=== PATIENT | male | born 1995 | race Two or more races ===

== ENCOUNTER 2017-01-27 20:15 | Emergency (ER) | payer SELFPAY ==
[~2017-01-27] VITALS: Ht 165.1 cm; Wt 52.2 kg
[2017-01-27 20:25] VITALS: BP 106/70
--- NOTE | 2017-01-27 20:45 | RAD ---
PROCEDURE CT head without contrast 2016. HISTORY Syncope. Possible seizure. TECHNIQUE Noncontrast images were performed. Exposure: One or more of the following individualized dose reduction techniques were utilized for this exam: 1. Automated exposure control. 2. Adjustment of the mA and/or kV according to patient size. 3. Use of iterative reconstruction technique. COMPARISON FINDINGS There is no apparent intracranial mass, hemorrhage or abnormal extra-axial fluid collection. No area of abnormal density is seen in the brain. The ventricles and basilar cisterns are normally positioned. The sinuses and mastoid air cells are clear. IMPRESSION No apparent intracranial abnormality. Electronically signed by: Devonte Berumen (Jan 27, 2017 20:43:58)
--- NOTE | 2017-01-27 21:01 | PHYS DOC ---
General Chief Complaint: SYNCOPE Stated Complaint: SEIZURE Time Seen by MD: 20:18 Source: patient, EMS Exam Limitations: no limitations Problems: History of Present Illness Initial Comments Pt is 21/M to ED via EMS for possible seizure. EMS reports called to local [employer] for possible seizure. On arrival pt found by EMS to be awake and confused, unaware of day, location, or name of boss at work. No lateralizing neurodefs. On ED arrival pt AOx3, no BETANCOURT or focal weakness, no new/progressive sx. 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 Pt asymptomatic on arrival. Timing/Duration: 1 hour Severity: severe Modifying Factors: improves with other Associated Symptoms: syncope Allergies: Coded Allergies: No Known Drug Allergies (Unverified , 01/27/17) Past Medical History Medical History: no pertinent history Surgical History: noncontributory Social History Smoker: cigarettes Alcohol: none Drugs: none Review of Systems Constitutional: denies chills, denies fever, malaise Respiratory: denies cough, denies shortness of breath Cardiovascular: denies chest pain, denies palpitations, syncope Gastrointestinal: denies diarrhea, denies nausea, denies vomiting Genitourinary: denies dysuria, denies frequency, denies hematuria Musculoskeletal: see HPIdenies back pain, denies joint swelling, denies neck pain Psychiatric/Neurological: see HPIdenies headache Physical Exam General Appearance: WD/WN, no apparent distress, thin Eyes: bilateral eye EOMI, bilateral eye PERRL, bilateral eye normal inspection Ear, Nose, Throat: hearing grossly normal, normal ENT inspection, normal pharynx Neck: non-tender, supple Respiratory: normal breath sounds, no respiratory distress Cardiovascular: normal peripheral pulses, regular rate, rhythm Gastrointestinal: non tender, soft Back: no CVA tenderness, no vertebral tenderness Extremities: non-tender, normal inspection 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 PHYSICIAN: LAURYN MUNIZ DO REASON: syncope/seizure PROCEDURE: CT HEAD WO CONTRAST PROCEDURE CT head without contrast 2016. HISTORY Syncope. Possible seizure. TECHNIQUE Noncontrast images were performed. Exposure: One or more of the following individualized dose reduction techniques were utilized for this exam: 1. Automated exposure control. 2. Adjustment of the mA and/or kV according to patient size. 3. Use of iterative reconstruction technique. COMPARISON FINDINGS There is no apparent intracranial mass, hemorrhage or abnormal extra-axial fluid collection. No area of abnormal density is seen in the brain. The ventricles and basilar cisterns are normally positioned. The sinuses and mastoid air cells are clear. IMPRESSION No apparent intracranial abnormality. Electronically signed by: Jaspal Berumen (Jan 27, 2017 20:43:58) DICTATED AND SIGNED BY: JASPAL BERUMEN Jr, MD DATE: 01/27/172043 CC: LAURYN MUNIZ DO ~ Chest AP: hyperinflation no acute process noted Overall reassuring workup, lactic acid 5.1 (supports seizure) UDS +cannabinoids +benzodiazepines (pt doesn't wish UDS to be discussed in front of mom). I discussed tx plan and close neurology follow up, pt with supportive family will return prn. Departure Time of Disposition: 22:13 Disposition: 01 HOME, SELF-CARE Diagnosis: New onset seizure Condition: IMPROVED Patient Instructions: Seizure, Adult, [id number] Additional Instructions: Off work until cleared by neurology. No driving or operating machinery until cleared by neurology. Aggressive hydration with gatorade, water. Rest, no strenuous activity. You need to follow up with a Neurologist: Afua Pickering MD [address] [place], [place] [phone] call tomorrow morning to schedule next available appointment. Return to ED with new or changing symptoms. LAURYN MUNIZ DO Jan 27, 2017 21:01
[2017-01-27] MEDS ORDERED: IV NORMAL SALINE 1,000ML 1,000 ML IV SCH (21:15)
[2017-01-27 21:24] LABS: BASO # 0.1 x10^3/uL (0.0-0.2); BASO % 1 % (0-3); EOS # 0.2 x10^3/uL (0.0-0.7); EOS % 2 % (0-3); HEMATOCRIT 42.8 % (39.0-53.0); HEMOGLOBIN 14.3 g/dL (13.0-17.5); LYMPH # 2.5 x10^3/uL (1.0-4.8); LYMPH % 29 % (24-48); MEAN CORPUSCULAR HEMOGLOBIN 30 pg (25-35); MEAN CORPUSCULAR HGB CONC 33 g/dL (31-37); MEAN CORPUSCULAR VOLUME 90 fL (79-100); MONO # 0.6 x10^3/uL (0.0-1.1); MONO % 7 % (0-9); NEUT # 5.2 x10^3uL (1.8-7.7); NEUT % 61 % (31-73); PLATELET COUNT 230 x10^3/uL (140-400); RED BLOOD COUNT 4.75 x10^6/uL (4.30-5.70); RED CELL DISTRIBUTION WIDTH 12.7 % (11.5-14.5); WHITE BLOOD COUNT 8.6 x10^3/uL (4.0-11.0)
[2017-01-27 21:29] LABS: CALCIUM 9.5 mg/dL (8.5-10.1); CREATININE 1.1 mg/dL (0.7-1.3); GFR 86.2; POTASSIUM 4.1 mmol/L (3.5-5.1)
[2017-01-27 22:01] LABS: AMPHETAMINE/METHAMPHETAMINE NEG (NEG); BARBITURATES NEG (NEG); BENZODIAZEPINES POS (NEG); CANNABINOIDS POS (NEG); COCAINE NEG (NEG); METHADONE NEG (NEG); OPIATES NEG (NEG); PHENCYCLIDINE NEG (NEG)
[2017-01-27 22:09] LABS: BILIRUBIN,URINE NEG (NEG); CLARITY,URINE CLEAR; COLOR,URINE YELLOW; GLUCOSE,URINE NEG (NEG); NITRITE,URINE NEG (NEG); UROBILINOGEN,URINE 0.2 mg/dL (0.2 mg/dL)
[2017-01-27 22:10] LABS: BACTERIA,URINE 0 /HPF (0-FEW)
[2017-01-27 22:11] LABS: SQUAMOUS EPITHELIAL CELL,UR OCC /LPF
--- NOTE | 2017-01-28 09:24 | RAD ---
AP portable chest radiograph 01/27/2017 Clinical History: Syncope. An AP portable erect digital radiograph of the chest was obtained. No previous studies are available for comparison. The cardiac and mediastinal silhouettes are within normal limits in size and configuration. No acute pulmonary infiltrate is seen. No pleural effusion or pneumothorax is noted. The osseous structures are grossly intact. Impression: No radiographic evidence of active cardiopulmonary disease.
== END 2017-01-27 22:44 | disposition home or self-care (01) ==
LOC: ER 20:15
DX: R56.9 Unspecified convulsions (principal); R55 Syncope and collapse; F17.210 Nicotine dependence, cigarettes, uncomplicated
CPT/HCPCS: 36415; 70450; 71010; 80048; 80305; 80320; 81001; 82550; 83605; 85027; 96360; G0480; G0481; 99285-25; J7030

== ENCOUNTER 2017-12-05 05:16 | Emergency (ER) | payer BC ==
[~2017-12-05] VITALS: Ht 165.1 cm; Wt 46.8 kg
[2017-12-05] MEDS ORDERED: ONDANSETRON PF 4 MG/2 ML VIAL. ONE (05:34)
[2017-12-05] MEDS ORDERED: IV NORMAL SALINE 1,000ML 1,000 ML IV SCH (05:35)
[2017-12-05] MEDS ORDERED: KETOROLAC 30 MG/ML VIAL. IV ONE (05:45)
[2017-12-05] MEDS ORDERED: 0.9 % SODIUM CHLORIDE 10 ML DISP.SYRIN. IV PRN (05:45)
[2017-12-05] MEDS ORDERED: ONDANSETRON PF 4 MG/2 ML VIAL. IV ONE (05:45)
--- NOTE | 2017-12-05 05:50 | PHYS DOC ---
Past History Past Medical History: No Pertinent History Past Surgical History: No Surgical History Alcohol Use: Occasionally Drug Use: None Adult General Chief Complaint Chief Complaint: ABDOMINAL PAIN [facility] HPI 22-year-old male patient without medical problems complaining of sudden onset of epigastric pain since 2200 last night as a constant and sharp pain without radiation. Patient rated his pain as a severe pain. Patient complaining of 6 episodes of nonbloody vomiting. Patient states that a bowel movement yesterday and times to small amount of stool. Patient denies fever and chills, urinary symptoms, sick contacts. Patient states he was able to drink plenty of liquids and urinating a lot. Review of Systems Review of Systems Constitutional: Denies fever or chills [] Eyes: Denies change in visual acuity, redness, or eye pain [] HENT: Denies nasal congestion or sore throat [] Respiratory: Denies cough or shortness of breath [] Cardiovascular: No additional information not addressed in HPI [] GI: Reports abdominal pain, nausea, vomiting, denies bloody stools or diarrhea [ ] : Denies dysuria or hematuria [] Musculoskeletal: Denies back pain or joint pain [] Integument: Denies rash or skin lesions [] Neurologic: Denies headache, focal weakness or sensory changes [] Endocrine: Denies polyuria or polydipsia [] All other systems were reviewed and found to be within normal limits, except as documented in this note. Family History Family History Noncontributory Current Medications Current Medications Current Medications Medications (Trade) Dose Ordered Sig/Macario Start Time Stop Time Status Last Admin Dose Admin Ketorolac Tromethamine (Toradol) 30 mg 1X ONCE 12/05/17 05:45 12/05/17 05:46 UNV Ondansetron HCl (Zofran) 4 mg 1X ONCE 12/05/17 05:45 12/05/17 05:46 UNV Sodium Chloride (Normal Saline Flush) 10 ml QSHIFT PRN 12/05/17 05:45 UNV Allergies Allergies Allergies Coded Allergies Type Severity Reaction Last Updated Verified No Known Drug Allergies 01/27/17 No Physical Exam Physical Exam Constitutional: Well developed, well nourished, moderate distress, non-toxic appearance, anxious. [] HENT: Normocephalic, atraumatic, bilateral external ears normal, oropharynx moist, no oral exudates, nose normal. [] Eyes: PERRLA, EOMI, conjunctiva normal, no discharge. [] Neck: Normal range of motion, no tenderness, supple, no stridor. [] Cardiovascular:Heart rate regular rhythm, no murmur [] Lungs & Thorax: Bilateral breath sounds clear to auscultation [] Abdomen: Bowel sounds normal, soft, no tenderness, epigastric guarding, no masses, no pulsatile masses. [] Skin: Warm, dry, no erythema, no rash. [] Back: No tenderness, no CVA tenderness. [] Extremities: No tenderness, no cyanosis, no clubbing, ROM intact, no edema. [] Neurologic: Alert and oriented X 3, normal motor function, normal sensory function, no focal deficits noted. [] Psychologic: Anxious, judgement normal, mood normal. [] Current Patient Data Vital Signs Vital Signs Date Time Temp Pulse Resp B/P (MAP) Pulse Ox O2 Delivery O2 Flow Rate FiO2 12/05/17 08:02 70 18 122/76 (91) 99 Room Air 12/05/17 05:16 98.4 64 26 100 Room Air Lab Results Laboratory Tests Test 12/05/17 05:40 12/05/17 06:56 White Blood Count 14.1 x10^3/uL (4.0-11.0) Red Blood Count 5.32 x10^6/uL (4.30-5.70) Hemoglobin 15.7 g/dL (13.0-17.5) Hematocrit 47.4 % (39.0-53.0) Mean Corpuscular Volume 89 fL (79-100) Mean Corpuscular Hemoglobin 30 pg (25-35) Mean Corpuscular Hemoglobin Concent 33 g/dL (31-37) Red Cell Distribution Width 13.6 % (11.5-14.5) Platelet Count 279 x10^3/uL (140-400) Neutrophils (%) (Auto) 85 % (31-73) Lymphocytes (%) (Auto) 11 % (24-48) Monocytes (%) (Auto) 3 % (0-9) Eosinophils (%) (Auto) 0 % (0-3) Basophils (%) (Auto) 1 % (0-3) Neutrophils # (Auto) 12.0 x10^3uL (1.8-7.7) Lymphocytes # (Auto) 1.5 x10^3/uL (1.0-4.8) Monocytes # (Auto) 0.5 x10^3/uL (0.0-1.1) Eosinophils # (Auto) 0.0 x10^3/uL (0.0-0.7) Basophils # (Auto) 0.1 x10^3/uL (0.0-0.2) Sodium Level 137 mmol/L (136-145) Potassium Level 3.7 mmol/L (3.5-5.1) Chloride Level 99 mmol/L (98-107) Carbon Dioxide Level 23 mmol/L (21-32) Anion Gap 15 (6-14) Blood Urea Nitrogen 18 mg/dL (8-26) Creatinine 1.0 mg/dL (0.7-1.3) Estimated GFR (Cockcroft-Gault) 95.3 BUN/Creatinine Ratio 18 (6-20) Glucose Level 144 mg/dL (70-99) Calcium Level 10.0 mg/dL (8.5-10.1) Total Bilirubin 0.5 mg/dL (0.2-1.0) Aspartate Amino Transf (AST/SGOT) 34 U/L (15-37) Alanine Aminotransferase (ALT/SGPT) 31 U/L (16-63) Alkaline Phosphatase 81 U/L (46-116) Total Protein 8.1 g/dL (6.4-8.2) Albumin 4.5 g/dL (3.4-5.0) Albumin/Globulin Ratio 1.3 (1.0-1.7) Lipase 117 U/L (73-393) Urine Collection Type Unknown Urine Color Angie Urine Clarity Clear Urine pH 6.5 Urine Specific Burt 1.025 Urine Protein 30 mg/dl (NEG-TRACE) Urine Glucose (UA) Neg mg/dL (NEG) Urine Ketones (Stick) 80 mg/dL (NEG) Urine Blood Neg (NEG) Urine Nitrite Neg (NEG) Urine Bilirubin Neg (NEG) Urine Urobilinogen Dipstick 0.2 mg/dL (0.2 mg/dL) Urine Leukocyte Esterase Neg (NEG) Urine RBC Occ /HPF (0-2) Urine WBC Occ /HPF (0-4) Urine Squamous Epithelial Cells Occ /LPF Urine Amorphous Sediment Present /HPF Urine Bacteria 0 /HPF (0-FEW) Urine Mucus Slight /LPF Urine Sperm Present /HPF EKG EKG [] Radiology/Procedures Radiology/Procedures US abd Impressions: No acute disease Course & Med Decision Making Course & Med Decision Making Moderate improvement with GI cocktail. CT scan was declined. Dragon Disclaimer Dragon Disclaimer This electronic medical record was generated, in whole or in part, using a voice recognition dictation system. Departure Departure: Impression: Primary Impression: Epigastric pain Additional Impression: Nausea and vomiting Disposition: HOME, SELF-CARE Condition: STABLE Referrals: PCPTRVEOR (PCP) Patient Instructions: Gastritis, Adult Additional Instructions: Jasper was seen in the emergency department for nausea/vomiting and abdominal pain. No emergency medical condition was found on history or physical exam. He did have normal labs and imaging. He is given prescription for nausea medication. His symptoms are most consistent with gastritis. He is advised follow-up with his primary care doctor as needed for further management. Problem Qualifiers MILIND GONZALEZ MD Dec 05, 2017 05:50 NIKOS VALENCIA MD Dec 05, 2017 08:26
[2017-12-05 05:57] LABS: BASO # 0.1 x10^3/uL (0.0-0.2); BASO % 1 % (0-3); EOS % 0 % (0-3); HEMATOCRIT 47.4 % (39.0-53.0); HEMOGLOBIN 15.7 g/dL (13.0-17.5); LYMPH # 1.5 x10^3/uL (1.0-4.8); LYMPH % 11 % (24-48); MEAN CORPUSCULAR HEMOGLOBIN 30 pg (25-35); MEAN CORPUSCULAR HGB CONC 33 g/dL (31-37); MEAN CORPUSCULAR VOLUME 89 fL (79-100); MONO # 0.5 x10^3/uL (0.0-1.1); MONO % 3 % (0-9); NEUT % 85 % (31-73); PLATELET COUNT 279 x10^3/uL (140-400); RED BLOOD COUNT 5.32 x10^6/uL (4.30-5.70); RED CELL DISTRIBUTION WIDTH 13.6 % (11.5-14.5); WHITE BLOOD COUNT 14.1 x10^3/uL (4.0-11.0)
[2017-12-05 06:08] LABS: ALBUMIN 4.5 g/dL (3.4-5.0); ALBUMIN/GLOBULIN RATIO 1.3 (1.0-1.7); GFR 95.3; POTASSIUM 3.7 mmol/L (3.5-5.1); TOTAL BILIRUBIN 0.5 mg/dL (0.2-1.0); TOTAL PROTEIN 8.1 g/dL (6.4-8.2)
--- NOTE | 2017-12-05 07:10 | RAD ---
INDICATION: abd pain x 10 hrs COMPARISON: None. TECHNIQUE: Grayscale and color ultrasound images obtained through the abdomen. FINDINGS: Aorta/IVC: Visualized portion unremarkable. Pancreas: Visualized portions unremarkable. Liver: Echotexture within normal limits. Gallbladder: No definite stones or wall thickening. Common Bile Duct: Not dilated. Right Kidney: No hydronephrosis. IMPRESSION: No definite gallstones or bile duct dilation. Electronically signed by: Jaiden Larsen MD (12/05/2017 7:07 AM) [facility]
[2017-12-05 07:32] LABS: AMORPHOUS SEDIMENT,UR PRESENT /HPF; BACTERIA,URINE 0 /HPF (0-FEW); BILIRUBIN,URINE NEG (NEG); CLARITY,URINE CLEAR; COLOR,URINE AMBER; GLUCOSE,URINE NEG (NEG); NITRITE,URINE NEG (NEG); RBC,URINE OCC /HPF (0-2); SPERM,URINE PRESENT /HPF; SQUAMOUS EPITHELIAL CELL,UR OCC /LPF; UROBILINOGEN,URINE 0.2 mg/dL (0.2 mg/dL); WBC,URINE OCC /HPF (0-4)
[2017-12-05] MEDS ORDERED: LIDO:MAALOX 1:1 20 ML SINGLE DOSE PO ONE (08:00)
[2017-12-05 08:02] VITALS: BP 122/76
[2017-12-05] MEDS ORDERED: ONDA4TAB10 SL (08:43)
== END 2017-12-05 08:47 | disposition home or self-care (01) ==
LOC: ER 05:16
DX: R10.13 Epigastric pain (principal); R11.2 Nausea with vomiting, unspecified
CPT/HCPCS: 36415; 76705; 80053; 81001; 83690; 85025; 96361; 96374; 96375; 99285; J1885; J2405; J3010; J7030

== ENCOUNTER 2017-12-07 11:27 | Emergency (ER) | payer BC ==
[~2017-12-07 11:27] MED LIST: ONDA4TAB10 SL
[2017-12-07] MEDS ORDERED: IOHEXOL 300 MG/ML 75 ML VIAL. IV ONE (12:45)
--- NOTE | 2017-12-07 13:13 | RAD ---
EXAM: CT abdomen/pelvis with contrast. HISTORY: Right abdominal pain. TECHNIQUE: Computed tomography of the abdomen and pelvis was performed after the intravenous administration of 75 mL Omnipaque 300. COMPARISON: None. FINDINGS: Lung windows through the visualized portions of the bases reveal no abnormality. Bone windows reveal no suspicious lesions. The liver, gallbladder, pancreas, adrenal glands, spleen and kidneys are unremarkable. There are no pathologically enlarged lymph nodes. The appendix is not inflamed. There is no obstruction. Questionable mild wall thickening of the left colon is likely only from luminal decompression. IMPRESSION: 1. No cause for acute pain is identified. Correlate with symptoms to exclude mild left colitis. *One or more of the following individualized dose reduction techniques were utilized for this examination: 1. Automated exposure control. 2. Adjustment of the mA and/or kV according to patient size. 3. Use of iterative reconstruction technique.
[2017-12-07] MEDS ORDERED: LIDO:MAALOX 1:1 20 ML SINGLE DOSE PO ONE (13:15)
[2017-12-07 13:40] VITALS: BP 129/59
--- NOTE | 2017-12-07 13:55 | PHYS DOC ---
Past History Past Medical History: No Pertinent History Past Surgical History: No Surgical History Alcohol Use: Rarely Drug Use: Marijuana Adult General Chief Complaint Chief Complaint: ABDOMINAL PAIN HPI HPI Patient is a 22 year old F who presents with epigastric pain with nausea over the past 3-4 days. He was seen in the emergency department 2 days ago with a negative workup. He feels that his symptoms are worse after eating and improved in between meals. He denies vomiting or diarrhea. He has no other associated symptoms. He has no exacerbating or alleviating factors. Review of Systems Review of Systems Constitutional: Denies fever or chills [] Eyes: Denies change in visual acuity, redness, or eye pain [] HENT: Denies nasal congestion or sore throat [] Respiratory: Denies cough or shortness of breath [] Cardiovascular: No additional information not addressed in HPI [] GI: Denies vomiting, bloody stools or diarrhea [] : Denies dysuria or hematuria [] Musculoskeletal: Denies back pain or joint pain [] Integument: Denies rash or skin lesions [] Neurologic: Denies headache, focal weakness or sensory changes [] Endocrine: Denies polyuria or polydipsia [] All other systems were reviewed and found to be within normal limits, except as documented in this note. Family History Family History No pertinent family medical she was reported Current Medications Current Medications Current Medications Medications (Trade) Dose Ordered Sig/Macario Start Time Stop Time Status Last Admin Dose Admin Iohexol (Omnipaque 300 Mg/ml) 75 ml 1X ONCE 12/07/17 12:45 12/07/17 12:46 DC Multi-Ingredient Mouthwash/Gargle (Gi Cocktail) 20 ml 1X ONCE 12/07/17 13:15 12/07/17 13:16 DC 12/07/17 13:32 20 ML Allergies Allergies Allergies Coded Allergies Type Severity Reaction Last Updated Verified No Known Drug Allergies 01/27/17 No Physical Exam Physical Exam Constitutional: Well developed, well nourished, no acute distress, non-toxic appearance. [] HENT: Normocephalic, atraumatic, bilateral external ears normal, oropharynx moist, no oral exudates, nose normal. [] Eyes: PERRLA, EOMI, conjunctiva normal, no discharge. [] Neck: Normal range of motion, no tenderness, supple, no stridor. [] Cardiovascular:Heart rate regular rhythm, no murmur [] Lungs & Thorax: Bilateral breath sounds clear to auscultation [] Abdomen: Bowel sounds normal, soft, no masses, no pulsatile masses. [] Mild epigastric tenderness, no left sided tenderness Skin: Warm, dry, no erythema, no rash. [] Extremities: No tenderness, no cyanosis, no clubbing, ROM intact, no edema. [] Neurologic: Alert and oriented X 3, normal motor function, normal sensory function, no focal deficits noted. [] Psychologic: Affect normal, judgement normal, mood normal. [] Current Patient Data Vital Signs Vital Signs Date Time Temp Pulse Resp B/P (MAP) Pulse Ox O2 Delivery O2 Flow Rate FiO2 12/07/17 11:45 98.1 53 16 100 Room Air EKG EKG [] Radiology/Procedures Radiology/Procedures CT abdomen and pelvis with contrast Impressions: No acute disease was noted however radiology report did comment on possible left -sided colitis. Correlation with physical exam was not consistent with colitis Course & Med Decision Making Course & Med Decision Making Pertinent Labs and Imaging studies reviewed. (See chart for details) His symptoms did improve moderately with a GI cocktail Dragon Disclaimer Dragon Disclaimer This electronic medical record was generated, in whole or in part, using a voice recognition dictation system. Departure Departure: Impression: Primary Impression: Gastritis Disposition: HOME, SELF-CARE Condition: STABLE Referrals: RACHEL SON APRN (PCP) Patient Instructions: Gastritis, Adult Additional Instructions: Jasper was seen in the emergency department for abdominal pain. No emergency medical condition was found on history or physical exam. He did have a normal CT scan. His symptoms are most consistent with gastritis. Is advised follow-up with his primary care doctor as needed for further management. Problem Qualifiers Primary Impression: Gastritis Gastritis type: unspecified gastritis Chronicity: acute Gastritis bleeding : without bleeding Qualified Codes: K29.00 - Acute gastritis without bleeding NIKOS VALENCIA MD Dec 07, 2017 13:55
== END 2017-12-07 13:59 | disposition home or self-care (01) ==
LOC: ER 11:27
DX: K29.70 Gastritis, unspecified, without bleeding (principal); F12.10 Cannabis abuse, uncomplicated
CPT/HCPCS: 74177; 99284-25

== ENCOUNTER 2020-06-27 15:28 | Emergency (ER) | payer BC, OTHER ==
[~2020-06-27] VITALS: Ht 165.1 cm; Wt 48.7 kg
[2020-06-27 15:45] VITALS: BP 128/82
[2020-06-27] MEDS ORDERED: IOHEXOL 350 MG/ML 100 ML VIAL. IV ONE (16:00)
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
[2020-06-27] MEDS ORDERED: ACETAMINOPHEN 500 MG TABLET PO ONE (16:30)
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
[2020-06-27] MEDS ORDERED: IBUP200T44 PO (17:50)
== END 2020-06-27 18:04 | disposition home or self-care (01) ==
LOC: ER 15:28
DX: S40.012A Contusion of left shoulder, initial encounter (principal); R07.89 Other chest pain; R10.9 Unspecified abdominal pain; V89.2XXA Person injured in unspecified motor-vehicle accident, traffic, initial encounter; Y93.I9 Activity, other involving external motion; Y92.488 Other paved roadways as the place of occurrence of the external cause; Y99.8 Other external cause status
CPT/HCPCS: 71275; 72125; 72128; 72131; 74174; 99285; Q9967